=== PATIENT | male | born 1995 | race Caucasian/White ===

== ENCOUNTER 2016-10-27 12:02 | Emergency (ER) | payer SELFPAY ==
[2016-10-27 12:49] VITALS: BP 124/88
[2016-10-27] MEDS ORDERED: MOTRIN PO ONE (16:23)
--- NOTE | 2016-10-27 16:31 | Emergency Department Report ---
Upper Extremity - [facility] Chief Complaint: Extremity Injury, Upper Stated Complaint: RIGHT HAND INJURY Time Seen by Provider: 10/27/16 16:18 Upper Extremity: Right Forearm (range of motion right forearm intact), Right Wrist (range of motion wrist limited), Right Hand (swelling right hand at fourth and fifth metacarpals mid hand region), Right Thumb (range of motion intact), Right Index Finger (intact), Right Middle Finger (range of motion intact), Right Ring Finger (ROM intact), Right Little Finger (ROM intact) Occurred When: 1 Day Mechanism: Other (patient punched a wall) Symptoms: Yes Pain with Movement, Yes Deformity, Yes Limited Range of Movement ( range of motion right wrist limited flexion and extension due to pain and swelling), Yes Weakness (weakness due to pain), Yes Swelling (swelling at right hand wrist), Yes Bruising/Ecchymosis (visible ecchymosis right wrist), No Numbness (sensation distal fingers and wrist fully intact), No Laceration or Abrasion Other History: 21-year-old male past medical history none presents with complaint of right hand pain and swelling since last night. Patient states that he got upset due to personal issue and punched a brick wall. Denies any lacerations but has difficulty moving right hand and wrist. Visible right hand swelling at the lateral edge below pinky finger. Denies any other injuries whatsoever. Patient awake alert and oriented 3 ambulating without any assistance. English speaking which I speak fluently. ED Review of Systems ROS: Stated complaint: RIGHT HAND INJURY Other details as noted in HPI ED Past Medical Hx - Medications Home Medications: Home Medications Medication Instructions Recorded Confirmed Last Taken Type HYDROcodone/APAP 5-325 [Kechi 1 each PO Q8H PRN #15 tablet 10/27/16 Unknown Rx 5/325] Ibuprofen [Motrin] 600 mg PO Q8H PRN #25 tablet 10/27/16 Unknown Rx Upper Extremity Exam - Exam General: Vital signs noted. No distress. Alert and acting appropriately. Head and Torso: No HEENT Abnormality, No Neck Tenderness, No Chest/Lungs Abnormality, No Abdominal Tenderness, No Back Tenderness Shoulder Exam: Yes Normal Range of Motion in Shoulder, No Shoulder Tenderness, No Clavicle Tenderness, No Shoulder Deformity, No AC Joint Tenderness Arm Exam: No Arm/Humerus Tenderness, No Arm Deformity Elbow: No Elbow Tenderness, No Normal Range of Motion in Elbow, No Elbow Deformity Forearm: Yes Forearm Tenderness (at distal ulnar region), No Forearm Deformity, No Pain with Pronation, No Pain with Supination Wrist: Yes Wrist Tenderness, Yes Wrist Deformity, No Normal ROM in Wrist, No Snuffbox Tenderness (there is no snuffbox tenderness on clinical exam), No Pain with Axial Thumb Compression Hand: Yes Hand Tenderness, Yes Hand Deformity, Yes Normal ROM in Digit(s), No Digit Tenderness, No Digit(s) Deformity, No Tendon Dysfunction CMS Exam: Yes Normal Distal Pulses (distal radial and ulnar pulses intact, capillary refill less than one second all fingers), Yes Normal Capillary Refill , Yes Normal Distal Sensation, No Broken Skin ED Course Vital Signs 10/27/16 12:46 Temperature 98.3 F Pulse Rate 73 Respiratory 20 Rate Blood Pressure 124/88 O2 Sat by Pulse 100 Oximetry ED Medical Decision Making - Medical Decision Making A/P: Boxer's fracture, metacarpal fracture, possible wrist bone fracture 1-case discussed with Dr. Hartman who aslo saw xray, possible intrarticular involvement of fracture base of right 5th metacarpal as seen on xray, pending official xray result. 2-I called Dr. Badillo from orthopedic surgery and discuss case with him, as per Dr. Badillo will send patient for CT noncontrast of right hand and wrist to better characterize fracture, no need to wait for results in the ED, patient to follow-up in Dr. Badillo's office this Thursday or as per Dr. Rios. 3-Motrin and Kechi when necessary for pain 4-right wrist/boxer splint 5-I gave patient explicit instructions to follow up as soon as possible this week with Dr. Badillo as if he does not he may experience permanent deformity or loss of function in the right hand or wrist area. Patient understood these instructions clearly, expressed understanding. 6-Dr. Barajas notified of consultation Critical care attestation.: If time is entered above; I have spent that time in minutes in the direct care of this critically ill patient, excluding procedure time. ED Disposition Clinical Impression: Hand fracture, right Qualifiers: Encounter type: initial encounter Fracture type: closed Qualified Code(s): S62.91XA - Unspecified fracture of right wrist and hand, initial encounter for closed fracture Disposition: DISCHARGED TO HOME OR SELFCARE Is pt being admited?: No Does the pt Need Aspirin: No Condition: Stable Instructions: Hand Fracture (ED), Boxer Fracture (ED) Additional Instructions: I spoke directly with Dr. Badillo regarding patient's fracture, as per Dr. Badillo patient to follow-up in clinic this Thursday or , Dr. Badillo aware of his case. Patient aware that if he does not follow-up and can result in permanent injury and disability in his right hand. Prescriptions: Ibuprofen [Motrin] 600 mg PO Q8H PRN #25 tablet PRN Reason: Pain HYDROcodone/APAP 5-325 [Kechi 5/325] 1 each PO Q8H PRN #15 tablet PRN Reason: Pain Referrals: DONA RIOS MD [Staff Physician] - 3-5 Days PRIMARY CAREMD [Primary Care Provider] - 3-5 Days [facility] [Outside] - 3-5 Days Forms: Work/School Release Form(ED) Time of Disposition: 18:15 Print Language: NEPALI
[2016-10-27] MEDS ORDERED: NORCO 5/325 PO ONE (18:17)
--- NOTE | 2016-10-27 18:54 | Cat Scan Report ---
FINAL REPORT PROCEDURE: CT right wrist and hand without contrast. TECHNIQUE: Computerized axial tomography was performed of the RIGHT upper extremity. HISTORY: Wrist/hand fracture. COMPARISON: No prior studies are available for comparison. FINDINGS: There is a linear, longitudinally oriented fracture through the lateral base of the 5th metacarpal. There is minimal displacement and no definite angulation. The remaining bones of the hand appear intact. The carpal bones appear intact. The joint spaces appear satisfactory. The soft tissues are unremarkable. IMPRESSION: Acute fracture involving the base of the 5th metacarpal.
--- NOTE | 2016-10-28 08:16 | XRay Report ---
RIGHT FOREARM TWO VIEWS : 10/27/16 12:02:00 CLINICAL: Trauma and pain. Hit a wall. Pain and swelling at the wrist. FINDINGS: Normal bones and joints. No fracture or dislocation. Mild soft tissue swelling at the wrist. No soft tissue air or foreign body. IMPRESSION: Soft tissue injury.
--- NOTE | 2016-10-28 08:18 | XRay Report ---
X-RAY RIGHT HAND 2 VIEWS: 10/27/16 16:19:00 CLINICAL: Struck a wall. Pain and swelling. FINDINGS: A comminuted minimally displaced fracture of the proximal fifth metacarpal. Mild medial angulation at the fracture. No callus. There is associated soft tissue swelling. No foreign body or soft tissue air. No other fracture. No dislocation. IMPRESSION: An acute comminuted closed minimally displaced traumatic boxer fracture.
--- NOTE | 2016-10-28 08:20 | XRay Report ---
X-RAY RIGHT WRIST THREE VIEWS: 10/27/16 16:18:00 CLINICAL: Struck a wall. Wrist pain and swelling. FINDINGS: The carpal bones are intact. The distal radius and ulna are intact. A comminuted minimally displaced fracture of the proximal fifth metacarpal. No callus. Overlying soft tissue swelling. No soft tissue air or foreign body. IMPRESSION: Acute post traumatic closed minimally displaced boxer fracture. Normal wrist.
== END 2016-10-27 18:54 | disposition home or self-care (01) ==
LOC: ED 12:02
DX: S62.346A Nondisplaced fracture of base of fifth metacarpal bone, right hand, initial encounter for closed fracture (principal); W22.01XA Walked into wall, initial encounter; Y93.89 Activity, other specified; Y99.8 Other external cause status; Y92.89 Other specified places as the place of occurrence of the external cause